=== PATIENT | male | born 1995 | race Caucasian/White ===

== ENCOUNTER 2018-09-26 21:37 | Emergency (ER) | payer OTHER ==
[2018-09-26 21:47] VITALS: BP 162/97
[2018-09-26] MEDS ORDERED: predniSONE 20 MG TABLET PO STA (22:10)
[2018-09-26] MEDS ORDERED: diphenhydrAMINE 25 MG CAPSULE PO STA (22:10)
--- NOTE | 2018-09-26 22:15 | ED Physician Documentation ---
PD HPI HEENT - Stated complaint Stated Complaint: RINGING IN LEFT EAR, DIZZY - Chief complaint Chief Complaint: Heent - History obtained from History obtained from: Patient - History of Present Illness Timing - onset: Other (The last couple of days has had ringing in the left ear with slight hearing loss and vertigo that is not related to motion of the head. He has had a mild runny nose but no other URI symptoms or fevers.) Review of Systems Constitutional: denies: Fever, Chills Ears: reports: Loss of hearing, Tinnitus/ringing. denies: Drainage/discharge, Foreign body Nose: reports: Rhinorrhea / runny nose. denies: Congestion PD PAST MEDICAL HISTORY - Present Medications Home Medications: Ambulatory Orders Medication Instructions Recorded Confirmed Meclizine HCl 25 mg PO Q6H PRN #20 tab.chew 09/26/18 predniSONE [Deltasone] 20 mg PO [id number] #21 tab 09/26/18 - Allergies Allergies/Adverse Reactions: Allergies Allergy/AdvReac Type Severity Reaction Status Date / Time Penicillins Allergy Rash Verified 09/26/18 21:47 PD ED PE NORMAL - Vitals Vital signs reviewed: Yes - General General: Alert and oriented X 3, No acute distress - HEENT HEENT: Other (TMs and canals are normal. He has very mild fast nystagmus on far leftward gaze only.) - Neck Neck: Supple, no meningeal sign, No bony TTP - Neuro Neuro: Alert and oriented X 3, cloth examiner hand 2-12 intact Eye Opening: Spontaneous Motor: Obeys Commands Verbal: Oriented GCS Score: 15 - Psych Psych: Normal mood, Normal affect Results - Vitals Vitals: Vital Signs - 24 hr 09/26/18 21:46 Temperature 37.0 C Heart Rate 61 Respiratory 18 Rate Blood Pressure 162/97 H O2 Saturation 99 Oxygen O2 Source Room air PD MEDICAL DECISION MAKING - ED course ED course: This is a 23-year-old gentleman who is active duty in the [employer] who has signs and symptoms very consistent with labyrinthitis which is treated with steroids and antihistamines. Departure - Departure Disposition: 01 Home, Self Care Clinical Impression: Acute viral labyrinthitis of left ear Condition: Good Record reviewed to determine appropriate education?: Yes Instructions: ED Labyrinthitis Prescriptions: Meclizine HCl 25 mg PO Q6H PRN #20 tab.chew PRN Reason: Dizziness predniSONE [Deltasone] 20 mg PO [id number] #21 tab Comments: Call your doctor to arrange a follow-up appointment, make the next available appointment. In the interim, return anytime if worse or if new symptoms develop. Your blood pressure was elevated today on check into the emergency department. This does not mean that you have hypertension, it is a common phenomenon to come to the emergency department and have elevated blood pressure. I recommend that you see your primary care physician within the week to have it rechecked when you are feeling better.
== END 2018-09-26 22:19 | disposition home or self-care (01) ==
LOC: ED 21:37
DX: H83.02 Labyrinthitis, left ear (principal); B97.89 Other viral agents as the cause of diseases classified elsewhere; R03.0 Elevated blood-pressure reading, without diagnosis of hypertension
CPT/HCPCS: 99283; A9270; J7512

== ENCOUNTER 2019-03-23 09:11 | Outpatient (CLI) | payer OTHER ==
[2019-03-23 10:06] VITALS: BP 90/60
--- NOTE | 2019-03-23 10:06 | SLEEP CARE CONSULTATION ---
Information from patient questionnaire entered by Seema Page. I have reviewed and concur with the information entered by Seema Page. This document represents the service I personally performed and the decisions made by me, Rom Beck MD, [facility]. History of Present Illness Reason for Visit: New patient Chief Complaint: reports: Snoring, Observed pauses in breathing Duration of Symptoms: 4 years Usual bedtime: 2 am Snores at night: Yes Observed to quit breathing while asleep: Yes Sleeps alone due to snoring: No Reasons for waking at night: reports: Gasping for air (sometimes) Toss, Turn, or Twitch while sleeping: Yes Recalls having dreams: No Usually gets out of bed at: 9 am Feels refreshed in the morning: No Morning headache: No Sleepy or fatigued during the day: Yes Ever fallen asleep while driving: No Takes day naps: No Prior sleep studies: No Additional HPI information: I had the pleasure of seeing Mr. Zhu today regarding the possibility of him having a sleep disorder. As you know, he is a 24 year old gentleman who complains of loud snore and is told by his that he quits breathing in his sleep. He feels tired in the morning and complains of excessive daytime sleepiness. He also has cardiac arrhythmia, awaiting cardiology referral. His mother has obstructive sleep apnea-hypopnea but refuses to use CPAP. 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 Patient is and lives in [place]. Have you smoked in the past 12 months: Yes Cigarettes per day (20/pack): 15 Quit date: 2 weeks ago Alcohol use: No Family History Family history of sleep disordered breathing: Yes Family Hx Sleep Apnea: Mother: Sleep apnea - Untreated Review of Systems Weight gain over past 5 years: 20 Weight loss over past 5 years: 10 Cardiovascular: denies: high blood pressure, palpitations, chest pain, irregular heart rate or pulse, leg or foot swelling, have to sleep sitting up, other Respiratory: denies: shortness of breath, wheeze, sputum production, chronic cough, other Gastrointestinal: denies: heartburn, difficulty swallowing, nausea, vomitting, diarrhea, abdominal pain, other Urinary: denies: incontinence, frequency, urgency, impotence, other Neurological: denies: headaches, seizure, head trauma, disorientation, speech dysfunction, gait or balance problems, fainting or unconsciousness, other Psychiatric: denies: Attention Deficit Hyperactivity, anxiety, depression, mood disorder, claustrophobia, other Ear/Nose/Throat: reports: tonsillectomy Endocrine: denies: thyroid disease, history of goiter, sluggishness, too hot or cold, excessive thirst, increased appetite, increased urination, unexplained weakness, other Musculoskeletal: denies: joint pain, neck pain, back pain, joint swelling, muscle pain or cramping, mobility problems, other Immunologic: denies: sneezing, rash, itching, allergies to food or environment, other Physical Exam Vital signs obtained and entered by: Dr. Beck Blood Pressure: 90/60 Cuff size: long Heart Rate: 68 O2 Saturation: 98 Height: 5 ft 8 in Weight (kg): 230 lb Body Mass Index: 34.9 BMI Classification: Class 1 Neck circumference: 17 Mood/affect: normal HEENT: No craniofacial malformation Nostrils: patent to airflow Turbinates: normal Septum: midline Mouth and throat: narrow oropharynx Soft palate: long Hard palate: normal Uvula: normal Uvula visualization: 25% Mallampati Class III Tongue: enlarged in size with teeth patino on lateral edges Tonsils: absent bilaterally Chin and jaw: normal size and position Neck: normal w/o lymphadenopathy or thyromegaly Heart: regular rate and rhythm Lungs: clear bilaterally Abdomen: soft Extremities: no edema or clubbing Neurologic: intact Impression and Plan IMPRESSION: 1. Obstructive Sleep Apnea-Hypopnea Syndrome, as suggested by history of loud and irregular snoring, observed cessation of breath while asleep, unrefreshed sleep, and daytime hypersomnolence. Narrow oropharynx and obesity are common predisposing factors for obstructive sleep apnea-hypopnea syndrome. Pathophysiology of sleep-disordered breathing was discussed. I recommend proceeding to polysomnography to confirm the diagnosis and to assess severity. If he has significant sleep disordered breathing, a manual CPAP titration study will also be performed to find the optimal treatment pressure. I informed the patient of what the sleep studies involve and after some discussion, he agreed to proceed. Plan: 1. Schedule polysomnography + manual CPAP titration study and return in 1 to 2 weeks after the study to discuss result and initiate therapy. 2. Avoid long distance driving or when feeling sleepy. 3. Avoid alcohol, sedative and muscle relaxant around bedtime. 4. Attempt to lose weight. I spent 100% of this 15 minute visit face to face with the patient with greater than 50% of this was spent time counseling the patient and coordination of care.
== END 2019-03-23 09:12 | disposition home or self-care (01) ==
LOC: SC 09:11
PROVIDERS: ATTEND Internal Medicine Pulmonary Disease
DX: R06.83 Snoring (principal); R06.81 Apnea, not elsewhere classified; G47.8 Other sleep disorders; G47.10 Hypersomnia, unspecified
CPT/HCPCS: 99203; 99212

== ENCOUNTER 2020-05-25 00:43 | Emergency (ER) | payer OTHER ==
--- NOTE | 2020-05-25 01:09 | ED Physician Documentation ---
History of Present Illness - Stated complaint Stated Complaint: HEART SKIPPING BEATS - Chief complaint Chief Complaint: Cardiac - History obtained from History obtained from: Patient - Additonal information Additional information: She comes emergency department complaining of palpitations for the last 2 weeks on and off. He states it started when he drank a couple of Red Bulls when he had to work a double shift. He states that he has been having issues with feeling as though his heart is "skipping" since. The patient states that this occurs on and off and that he cannot really tell what is triggering at otherwise. He states there is no particular pattern to the episodes otherwise. Patient denies chest pain or shortness of breath. No lightheadedness or fainting. He has no prior rhythm problems. [place] actually has a cardiology appointment coming up on the of this month. No other complaints at this time. Review of Systems Ten Systems: 10 systems reviewed and negative Constitutional: reports: Reviewed and negative Eyes: reports: Reviewed and negative Ears: reports: Reviewed and negative Nose: reports: Reviewed and negative Throat: reports: Reviewed and negative Cardiac: reports: Palpitations. denies: Chest pain / pressure, Pedal edema Respiratory: denies: Dyspnea, Cough GI: reports: Reviewed and negative : reports: Reviewed and negative Skin: reports: Reviewed and negative Musculoskeletal: reports: Reviewed and negative Neurologic: reports: Reviewed and negative Psychiatric: reports: Reviewed and negative Endocrine: reports: Reviewed and negative Immunocompromised: reports: Reviewed and negative PD PAST MEDICAL HISTORY - Present Medications Home Medications: Ambulatory Orders Medication Instructions Recorded Confirmed No Known Home Medications 05/25/20 05/25/20 - Allergies Allergies/Adverse Reactions: Allergies Allergy/AdvReac Type Severity Reaction Status Date / Time Penicillins Allergy Rash Verified 05/25/20 00:59 PD ED PE NORMAL - Vitals Vital signs reviewed: Yes - General General: Alert and oriented X 3, No acute distress - HEENT HEENT: Atraumatic, PERRL, EOMI, Moist mucous membranes - Neck Neck: Supple, no meningeal sign - Cardiac Cardiac: No murmur, Strong equal pulses, Other (Regularly irregular rhythm.) - Respiratory Respiratory: No respiratory distress, Clear bilaterally - Abdomen Abdomen: Soft, Non tender, Non distended - Derm Derm: Warm and dry - Extremities Extremities: No deformity - Neuro Neuro: Alert and oriented X 3 - Psych Psych: Normal mood, Normal affect Results - Vitals Vitals: Vital Signs - 24 hr 05/25/20 05/25/20 05/25/20 00:45 01:25 01:41 Temperature 36.6 C 36.6 C Heart Rate 56 L 71 70 Respiratory 18 16 16 Rate Blood Pressure 139/68 H 113/63 112/60 O2 Saturation 96 97 100 Oxygen O2 Source Room air - EKG (time done) 0046 Rate: Rate (enter#) (77) Rhythm: NSR, Other (Ectopy: PVCs) [place]: Normal Intervals: Normal SD QRS: Normal Ischemia: Normal ST segments Compare to prior EKG: Old EKG unavailable Computer interpretation: Agree with computer - Labs Labs: Laboratory Tests 05/25/20 00:55 Sodium 138 Potassium 3.5 Chloride 105 Carbon Dioxide 23 Anion Gap 10.0 BUN 18 Creatinine 1.0 Estimated GFR (MDRD) 90 Glucose 117 H Calcium 9.1 PD MEDICAL DECISION MAKING - ED course Complexity details: reviewed results, re-evaluated patient, considered differential, d/w patient ED course: Pt was worked up with EKG, which showed trigeminy, and with a BMP. He was unremarkable. I discussed with the patient that he first and foremost should avoid Eyes any potential triggers of PVCs. We have discussed what these are. The patient has already been referred to cardiology and has an appointment coming up. He is hemodynamically stable other than the feeling of palpitations, his PVCs are asymptomatic. At this point, the patient stable for discharge home. We have discussed the usual indications for return. Departure - Departure Disposition: 01 Home, Self Care Clinical Impression: Premature ventricular contractions (PVCs) (VPCs) Condition: Stable Instructions: ED Palpitations Comments: EKG shows PVCs, a very common type of "extra beat" that can be incorporated into the hearts rhythm. In general, PVCs are benign and do not cause major problems for most people. In fact, most of the time they are short-lived and temporary and resolve on their own. Things that can cause PVCs include lack of sleep, stress, stimulants such as caffeine and decongestants, and electrolyte abnormalities. We have checked basic labs on you today because of this, and have found that all of your important electrolytes, such as sodium, potassium, and calcium, are normal. At this point in time, you should continue your plans to follow-up with the venereal disease control head on the of this month. You may go about your normal activities without limitation until then. Please drink plenty of fluids and avoid potential triggers of PVCs. If you have a near fainting episode or if you develop chest pain when the palpitations are happening, you should be reevaluated without delay. Discharge Date/Time: 05/25/20 01:42
[2020-05-25 01:13] LABS: CALCIUM 9.1 mg/dL (8.5-10.3)
[2020-05-25 01:43] VITALS: BP 112/60
== END 2020-05-25 01:42 | disposition home or self-care (01) ==
LOC: ED 00:43
DX: I49.3 Ventricular premature depolarization (principal)
CPT/HCPCS: 36415; 80048; 93005; 99284; 99285

== ENCOUNTER 2020-08-20 12:22 | Emergency (ER) | payer OTHER ==
[2020-08-20 12:29] VITALS: BP 129/76
[2020-08-20] MEDS ORDERED: MECLIZINE 12.5 MG TABLET PO STA (12:41)
--- NOTE | 2020-08-20 12:41 | ED Physician Documentation ---
History of Present Illness - Stated complaint Stated Complaint: VERTIGO, EAR PX, N/V - Chief complaint Chief Complaint: Heent - Additonal information Additional information: 25-year-old male presents the emergency department for evaluation of left ear tinnitus that began yesterday evening as well as vomiting and vertigo that began this morning. He has a history of similar in the past. No recent cough cold or congestion. No fevers. Denies any falls or trauma. Review of Systems Constitutional: denies: Fever, Chills Eyes: reports: Reviewed and negative Ears: reports: Tinnitus/ringing. denies: Loss of hearing, Ear pain, Drainage/discharge Nose: denies: Rhinorrhea / runny nose, Congestion Throat: reports: Dental pain / toothache Cardiac: reports: Reviewed and negative Respiratory: reports: Reviewed and negative GI: reports: Nausea, Vomiting : reports: Reviewed and negative Skin: reports: Reviewed and negative Musculoskeletal: reports: Reviewed and negative Psychiatric: reports: Reviewed and negative PD PAST MEDICAL HISTORY - Present Medications Home Medications: Ambulatory Orders Medication Instructions Recorded Confirmed Meclizine HCl [Antivert] 25 mg PO TID PRN #20 tab 08/20/20 predniSONE [Deltasone] 10 mg PO [id number] #42 tab 08/20/20 - Allergies Allergies/Adverse Reactions: Allergies Allergy/AdvReac Type Severity Reaction Status Date / Time Penicillins Allergy Rash Verified 08/20/20 12:24 PD ED PE EXPANDED - General General: Alert, No acute distress, Well developed/nourished - HEENT HEENT: PERRL, EOMI, Ears normal - Eyes Eyes: PERRL, Normal accommodation (Fast beating horizontal nystagmus with far left gaze deviation), EOMI - Neck Neck: Supple w/out meningeal sx, No tenderness. No: Adenopathy - Cardiac Cardiac: Regular Rate, Regular Rhythm, Radial strong equal, Pedal strong equal. No: Murmur Present - Respiratory Respiratory: Clear to ausultation fide. No: Distress, Labored - Neuro Neuro: Alert and Oriented X 3, CNII-XII intact, Cerebellar nl, Normal gait, Normal finger nose, Normal speech, Other (Negative HINTS) - GCS Eye Opening: Spontaneous Motor: Abnormal Flexion Verbal: Oriented Total: 12 Results - Vitals Vitals: Vital Signs - 24 hr 08/20/20 12:26 Temperature 36.2 C L Heart Rate 69 Respiratory 16 Rate Blood Pressure 129/76 O2 Saturation 98 Oxygen O2 Source Room air PD MEDICAL DECISION MAKING - ED course Complexity details: re-evaluated patient, d/w patient ED course: This is a well-appearing 25-year-old male that presents to the emergency department for evaluation of acute onset left ear tinnitus vertigo and nausea. History of similar in the past. On exam we able to reproduce nystagmus with far left gaze deviation. Your show no signs of inner infection. Hints exam is negative for concerns of central etiology. History and exam is most consistent with a labyrinthitis given that he has tinnitus in addition to the vertigo. We will start this gentleman on meclizine as well as a prednisone taper. Advised follow-up with [facility] emergent return precautions discussed Departure - Departure Disposition: 01 Home, Self Care Clinical Impression: Labyrinthitis of left ear Condition: Stable Record reviewed to determine appropriate education?: Yes Instructions: ED Labyrinthitis Prescriptions: Meclizine HCl [Antivert] 25 mg PO TID PRN #20 tab PRN Reason: Vertigo predniSONE [Deltasone] 10 mg PO [id number] #42 tab Comments: Christian I hope that you are feeling better soon. Congratulations on the new baby I am glad that mom and baby are both doing well. As discussed you were seen in the emergency department for ringing in the left ear as well as vertigo and nausea. Your exam is consistent with a condition called labyrinthitis which is inflammation of the inner ear canals. I would like you to take the meclizine 2-3 times a day. This will help with nausea. In addition to that I have prescribed a 10-day taper of prednisone. Prednisone will be used to help decrease the inflammation. I would expect that within 12 to 24 hours after beginning these medications you are feeling better. Please follow-up with [facility]. If at any point you have worsening symptoms, double vision, suddenly severe headache or feel that your symptoms are not improving with this treatment please return to the emergency department for a second look
== END 2020-08-20 12:54 | disposition home or self-care (01) ==
LOC: ED 12:22
DX: H83.02 Labyrinthitis, left ear (principal); R11.2 Nausea with vomiting, unspecified
CPT/HCPCS: 99282; 99284; A9270

== ENCOUNTER 2020-10-09 13:07 | Emergency (ER) | payer OTHER ==
[2020-10-09] MEDS ORDERED: MECLIZINE 12.5 MG TABLET PO STA (14:46)
--- NOTE | 2020-10-09 14:48 | ED Physician Documentation ---
History of Present Illness - Stated complaint Stated Complaint: DIZZY/VOMITING - Chief complaint Chief Complaint: Heent - History obtained from History obtained from: Patient - History of Present Illness Timing: Today Pain level max: 0 Pain level now: 0 - Additonal information Additional information: 25 year old male with a history of vertigo, presents with vertigo today. Patient states that this is the third time this year. Has been treated with meclizine, antibiotics and steroids in the past. No fevers. No ear pain. Occasionally complains of ringing in the left ear. States was nauseated and vomited x1 today. He states that he recently failed a hearing test in his left ear as well. Has not been seen by ENT yet. No extremity numbness or weakness. No difficulty with ambulation or fine motor tasks Review of Systems Constitutional: denies: Fever, Chills Respiratory: denies: Cough GI: reports: Nausea, Vomiting. denies: Abdominal Pain, Diarrhea Skin: denies: Rash Musculoskeletal: denies: Neck pain, Back pain Neurologic: denies: Focal weakness, Numbness, Confused, Headache PD PAST MEDICAL HISTORY - Past Medical History Past Medical History: Yes HEENT: Chronic hearing loss - Past Surgical History Past Surgical History: No - Present Medications Home Medications: Ambulatory Orders Medication Instructions Recorded Confirmed Meclizine HCl [Antivert] 25 mg PO TID PRN #20 tab 08/20/20 predniSONE [Deltasone] 10 mg PO [id number] #42 tab 08/20/20 Meclizine HCl [Antivert] 25 - 50 mg PO Q6H PRN #30 tablet 10/09/20 Ondansetron Odt [Zofran] 4 mg TL Q6H PRN #10 tablet 10/09/20 predniSONE [Deltasone] 10 mg PO [id number] #42 tab 10/09/20 - Allergies Allergies/Adverse Reactions: Allergies Allergy/AdvReac Type Severity Reaction Status Date / Time Penicillins Allergy Rash Verified 10/09/20 13:13 - Social History Does the pt smoke?: No Smoking Status: Never smoker Does the pt drink ETOH?: No Does the pt have substance abuse?: No - Immunizations Immunizations are current?: Yes - POLST Patient has POLST: No PD ED PE NORMAL - Vitals Vital signs reviewed: Yes - General General: Alert and oriented X 3, No acute distress, Well developed/nourished - HEENT HEENT: Atraumatic, PERRL, EOMI, Ears normal (Mild scarring of the left tympanic membrane), Moist mucous membranes - Neck Neck: Supple, no meningeal sign - Cardiac Cardiac: RRR, Strong equal pulses - Respiratory Respiratory: No respiratory distress, Clear bilaterally - Abdomen Abdomen: Normal bowel sounds, Soft, Non tender, Non distended - Derm Derm: Warm and dry - Extremities Extremities: No edema, No calf tenderness / cord - Neuro Neuro: Alert and oriented X 3, wine manager 2-12 intact, No motor deficit, No sensory deficit, Normal speech, Other (Positive Hallpike to the left. Otherwise normal cerebellar test.) - Psych Psych: Normal mood, Normal affect Results - Vitals Vitals: Vital Signs - 24 hr 10/09/20 10/09/20 13:13 15:00 Temperature 36.5 C 36.0 C L Heart Rate 50 L 69 Respiratory 16 18 Rate Blood Pressure 139/87 H 124/76 O2 Saturation 97 98 Oxygen O2 Source Room air PD MEDICAL DECISION MAKING - ED course Complexity details: reviewed old records, re-evaluated patient, considered differential, d/w patient ED course: 25-year-old male with what appears to be BPPV. Negative head impulse testing. Negative hints. We will have him follow-up with his doctor for further care. Patient is well-appearing, nontoxic. Asymptomatic currently. Patient counseled regarding signs and symptoms for which I believe and urgent re-evaluation would be necessary. Patient with good understanding of and agreement to plan and is comfortable going home at this time This document was made in part using voice recognition software. While efforts are made to proofread this document, sound alike and grammatical errors may occur. Horizontal nystagmus to the left Departure - Departure Disposition: Home, Self Care Clinical Impression: BPPV (benign paroxysmal positional vertigo) Qualifiers: Laterality: left Qualified Code(s): H81.12 - Benign paroxysmal vertigo, left ear Condition: Good Instructions: ED BPV Vertigo Follow-Up: ALYSSA KNIGHT MD [Primary Care Provider] - Within 1 week [facility] [Provider Group] Prescriptions: Meclizine HCl [Antivert] 25 - 50 mg PO Q6H PRN #30 tablet PRN Reason: Vertigo predniSONE [Deltasone] 10 mg PO [id number] #42 tab Ondansetron Odt [Zofran] 4 mg TL Q6H PRN #10 tablet PRN Reason: Nausea / Vomiting Comments: As this is your third episode within 12 months of vertigo, you should be e valuated by ENT. Your doctor should refer you to an clinical research nurse coordinator for further work-up and evaluation. Return if you worsen. Do not drive or operate heavy machinery while experiencing vertigo. Discharge Date/Time: 10/09/20 15:05
[2020-10-09 15:00] VITALS: BP 124/76
--- OUTSIDE RECORDS SUMMARY | 2020-10-11 03:16 | EXTERNAL MEDICAL SUMMARY RPT | Continuity of Care Document ---
:1995 Demographics Phone Unavailable Preferred Language [place] Marital Status Unknown Buddhism Affiliation Unknown Race Unknown Ethnic Group Unknown Author Organization [facility] Address [address] [place] [address] Phone Social History date description facility [phone]
--- OUTSIDE RECORDS SUMMARY | 2020-10-11 03:16 | EXTERNAL MEDICAL SUMMARY RPT | Continuity of Care Document ---
:1995 Demographics Phone Unavailable Preferred Language Cuban Marital Status Unknown Temple Affiliation Unknown Race Unknown Ethnic Group Unknown Author Organization [facility] Address [address] [place] [address] Phone Social History date description facility [phone]
== END 2020-10-09 15:05 | disposition home or self-care (01) ==
LOC: ED 13:07
DX: H81.12 Benign paroxysmal vertigo, left ear (principal)
CPT/HCPCS: 99283; 99284; A9270